=== PATIENT | female | born 1935 | race Caucasian/White ===

== ENCOUNTER 2017-12-26 19:45 | Observation (INO) | payer BC, MEDICARE ==
[2017-12-26] MEDS: ASPIRIN CHEWABLE 81 MG TABLET. PO (20:05)
[2017-12-26 20:14] LABS: ADD MAN DIFF? NO
[2017-12-26] MEDS: MORPHINE SULFATE 4 MG/ML DISP.SYRIN. IV ×2 (20:15→20:26)
[2017-12-26 20:16] LABS: BASO # 0.1 x10^3/uL (0.0-0.2); BASO % 1 % (0-3); EOS # 0.1 x10^3/uL (0.0-0.7); EOS % 1 % (0-3); HEMATOCRIT 41.8 % (36.0-47.0); HEMOGLOBIN 14.4 g/dL (12.0-15.5); LYMPH # 2.3 x10^3/uL (1.0-4.8); LYMPH % 37 % (24-48); MEAN CORPUSCULAR HEMOGLOBIN 34 pg (25-35); MEAN CORPUSCULAR HGB CONC 35 g/dL (31-37); MEAN CORPUSCULAR VOLUME 97 fL (79-100); MONO # 0.5 x10^3/uL (0.0-1.1); MONO % 8 % (0-9); NEUT # 3.3 x10^3uL (1.8-7.7); NEUT % 53 % (31-73); PLATELET COUNT 226 x10^3/uL (140-400); RED BLOOD COUNT 4.29 x10^6/uL (3.50-5.40); RED CELL DISTRIBUTION WIDTH 13.3 % (11.5-14.5); WHITE BLOOD COUNT 6.2 x10^3/uL (4.0-11.0)
[2017-12-26 20:36] LABS: ANION GAP 5 (6-14); BLOOD UREA NITROGEN 23 mg/dL (7-20); CALCIUM 9.6 mg/dL (8.5-10.1); CARBON DIOXIDE 29 mmol/L (21-32); CHLORIDE 105 mmol/L (98-107); CREATININE 1.1 mg/dL (0.6-1.0); GFR 47.4; GLUCOSE 122 mg/dL (70-99); POTASSIUM 3.8 mmol/L (3.5-5.1); SODIUM 139 mmol/L (136-145)
[2017-12-26] MEDS: fentaNYL PF VIAL 100 MCG/2 ML VIAL IV (20:36)
[2017-12-26 20:43] LABS: TROPONINI < 0.017 ng/mL (0.000-0.055)
[2017-12-26 20:45] LABS: NT-PRO BNP 215 pg/mL (0-449)
[2017-12-26] MEDS ORDERED: ACETAMINOPHEN 325 MG TABLET. PO (22:45)
[2017-12-26] MEDS ORDERED: ONDANSETRON PF 4 MG/2 ML VIAL. IV (22:45)
[2017-12-26] MEDS: IV NORMAL SALINE 500ML BAG 500 ML IV (23:09)
[2017-12-26] MEDS ORDERED: CONTRAST GIVEN. MC (23:15)
[2017-12-26] MEDS: IOHEXOL 300 MG/ML 100ML VIAL. IV (23:33)
[2017-12-27] MEDS: fentaNYL PF VIAL 100 MCG/2 ML VIAL IV ×3 (00:23→10:35)
[2017-12-27 02:14] LABS: TROPONINI < 0.017 ng/mL (0.000-0.055)
[2017-12-27 05:24] LABS: ANION GAP 6 (6-14); BLOOD UREA NITROGEN 20 mg/dL (7-20); CALCIUM 9.1 mg/dL (8.5-10.1); CARBON DIOXIDE 28 mmol/L (21-32); CHLORIDE 105 mmol/L (98-107); GLUCOSE 99 mg/dL (70-99); POTASSIUM 4.1 mmol/L (3.5-5.1); SODIUM 139 mmol/L (136-145)
[2017-12-27 05:35] LABS: TROPONINI < 0.017 ng/mL (0.000-0.055)
[2017-12-27 08:38] LABS: CHOLESTEROL 214 mg/dL (0-200); CHOLESTEROL/HDL RATIO 3.6; HDLC 59 mg/dL (40-60); LDLC 135 mg/dL (0-100); NON-HDL CHOLESTEROL 155 mg/dL (0-129); TRIGLYCERIDES 101 mg/dL (0-150); VLDLC 20 mg/dL (0-40)
[2017-12-27 08:48] LABS: THYROID STIM HORMONE (TSH) 1.784 uIU/mL (0.358-3.74)
[2017-12-27] MEDS: REGADENOSON 0.4 MG/5 ML DISP.SYRIN. IV (10:45)
[2017-12-27] MEDS ORDERED: REGADENOSON 0.4 MG/5 ML DISP.SYRIN. IV (11:00)
[2017-12-27] MEDS ORDERED: hydrALAZINE 20 MG/ML VIAL. IVP (11:30)
[2017-12-27] MEDS ORDERED: ACETAMINOPHEN 325 MG TABLET. PO (11:30)
[2017-12-27] MEDS ORDERED: DOCUSATE SODIUM 100 MG CAPSULE. PO (11:30)
[2017-12-27] MEDS ORDERED: ONDANSETRON PF 4 MG/2 ML VIAL. IV (11:30)
[2017-12-27] MEDS ORDERED: ALBUTEROL SULFATE 2.5 MG/3 ML NEBU. NEB (13:45)
[2017-12-27] MEDS: HYDROcodone/APAP 5/325MG 1 TAB TABLET PO ×2 (15:23→21:17)
[2017-12-27] MEDS: amLODIPine BESYLATE 5 MG TABLET PO (15:23)
[2017-12-27] MEDS: ASPIRIN ENTERIC COATED 81 MG TABLET.DR. PO (15:23)
[2017-12-27] MEDS: ATORVASTATIN CALCIUM 20 MG TABLET PO (21:16)
[2017-12-27] MEDS: ENOXAPARIN 40 MG/0.4 ML SYRINGE. SQ (21:17)
[2017-12-28 05:02] LABS: ADD MAN DIFF? NO
[2017-12-28 05:15] LABS: BASO % 1 % (0-3); EOS # 0.1 x10^3/uL (0.0-0.7); EOS % 2 % (0-3); HEMATOCRIT 39.5 % (36.0-47.0); HEMOGLOBIN 13.3 g/dL (12.0-15.5); LYMPH # 2.4 x10^3/uL (1.0-4.8); LYMPH % 47 % (24-48); MEAN CORPUSCULAR HEMOGLOBIN 33 pg (25-35); MEAN CORPUSCULAR HGB CONC 34 g/dL (31-37); MEAN CORPUSCULAR VOLUME 98 fL (79-100); MONO # 0.4 x10^3/uL (0.0-1.1); MONO % 7 % (0-9); NEUT # 2.1 x10^3uL (1.8-7.7); NEUT % 42 % (31-73); PLATELET COUNT 206 x10^3/uL (140-400); RED BLOOD COUNT 4.05 x10^6/uL (3.50-5.40); RED CELL DISTRIBUTION WIDTH 13.3 % (11.5-14.5)
[2017-12-28 05:41] LABS: ANION GAP 6 (6-14); BLOOD UREA NITROGEN 19 mg/dL (7-20); CALCIUM 8.6 mg/dL (8.5-10.1); CARBON DIOXIDE 28 mmol/L (21-32); CHLORIDE 106 mmol/L (98-107); CREATININE 1.1 mg/dL (0.6-1.0); GFR 47.4; GLUCOSE 123 mg/dL (70-99); POTASSIUM 4.1 mmol/L (3.5-5.1); SODIUM 140 mmol/L (136-145)
[2017-12-28] MEDS: ASPIRIN ENTERIC COATED 81 MG TABLET.DR. PO (08:43)
[2017-12-28] MEDS: amLODIPine BESYLATE 5 MG TABLET PO (08:43)
[2017-12-28] MEDS ORDERED: traZODone 100 MG TABLET. PO (21:00)
== END 2017-12-28 15:45 | disposition home or self-care (01) ==
LOC: ER 19:45 → 2 SOUTH 22:30
DX: R07.89 Other chest pain (principal); I13.0 Hypertensive heart and chronic kidney disease with heart failure and stage 1 through stage 4 chronic kidney disease, or unspecified chronic kidney disease; I50.9 Heart failure, unspecified; N18.9 Chronic kidney disease, unspecified; E78.5 Hyperlipidemia, unspecified; E78.00 Pure hypercholesterolemia, unspecified; F17.210 Nicotine dependence, cigarettes, uncomplicated; K21.9 Gastro-esophageal reflux disease without esophagitis; J44.9 Chronic obstructive pulmonary disease, unspecified; M19.90 Unspecified osteoarthritis, unspecified site; M54.5 Low back pain; Z86.010 Personal history of colon polyps; Z90.49 Acquired absence of other specified parts of digestive tract
CPT/HCPCS: 36415; 71045; 71100; 71275; 78452; 80048; 80061; 83880; 84443; 84484; 85025; 93005; 93017; 96361; 96372; 96374; 96375; 96376; 97161-GP; 99285; A9500; G0378; G0379; J1650; J2270; J2785; J3010; J7040; Q9967

== ENCOUNTER → 2018-07-31 | Outpatient (CLI) | payer BC ==
[2017-12-28 15:00] VITALS: BP 139/71
[~2018-07-31] MED LIST: ALPR0.254 PO; AMLO10TA8 PO; ASPI-612 PO; ATOR20TA58 PO; CITA20TA6 PO; DOXA4TAB3 PO; HYDR-2765 PO; PANT40TA5 PO; TRAZ-86 PO
--- NOTE | 2018-07-31 14:55 | CARD ---
MR#: [id number] Date of Study: 07/31/2018 Ordering Physician: JANNA BIGGS, Referring Physician: JANNA BIGGS Tech: Brooklyn Unger SUNIL APPROVED REPORT EXAM: Two-dimensional and M-mode echocardiogram with Doppler and color Doppler. Other Information Quality : AverageHR: 85bpm Rhythm : NSR INDICATION Chest Pain 2D DIMENSIONS RVDd2.9 (2.9-3.5cm)Left Atrium(2D)3.6 (1.6-4.0cm) IVSd1.2 (0.7-1.1cm)Aortic Root(2D)2.9 (2.0-3.7cm) LVDd3.4 (3.9-5.9cm)LVOT Diameter1.7 (1.8-2.4cm) PWd1.1 (0.7-1.1cm)LVDs2.2 (2.5-4.0cm) FS (%) 35.9 %SV30.9 ml LVEF(%)66.6 (>50%) M-Mode DIMENSIONS Left Atrium(MM)3.80 (2.5-4.0cm)Aortic Root2.76 (2.2-3.7cm) Aortic Valve AoV Peak Francois.140.6cm/sAoV VTI25.8cm AO Peak GR.7.9mmHgLVOT Peak Francois.100.0cm/s AO Mean GR.4mmHgAVA (VMAX)1.52cm2 BUSTER (VTI)1.60cm2 Mitral Valve MV E Mqqrcrqa93.1cm/sMV DECEL [id number] MV A Zkgrbbfh795.1cm/sE/A Ratio0.8 MV A [id number] Pulmonary Valve PV Peak Ybudgyqz49.1cm/s LEFT VENTRICLE The left ventricle cavity is small. There is borderline to mild concentric left ventricular hypertrop hy. The left ventricular systolic function is normal. The Ejection Fraction is 65-70%. There is chela l LV segmental wall motion. Transmitral Doppler flow pattern is Grade I-abnormal relaxation pattern. RIGHT VENTRICLE The right ventricle is normal size. There is normal right ventricular wall thickness. The right ventr icular systolic function is normal. ATRIA The left atrium size is normal. The right atrium size is normal. The interatrial septum is intact wit h no evidence for an atrial septal defect or patent foramen ovale as noted on 2-D or Doppler imaging. AORTIC VALVE The aortic valve is normal in structure and function. The aortic valve is trileaflet. Doppler and Col or Flow revealed no significant aortic regurgitation. There is no significant aortic valvular stenosi s. MITRAL VALVE The mitral valve is normal in structure and function. There is no evidence of mitral valve prolapse. There is no mitral valve stenosis. Doppler and Color-flow revealed trace mitral regurgitation. TRICUSPID VALVE The tricuspid valve is normal in structure and function. Doppler and Color Flow revealed no tricuspid valve regurgitation noted. There is no tricuspid valve prolapse or vegetation. There is no tricuspid valve stenosis. PULMONIC VALVE Pulmonic valve not well visualized. GREAT VESSELS The aortic root is normal in size. The ascending aorta is normal in size. The IVC is normal in size a nd collapses >50% with inspiration. PERICARDIAL EFFUSION There is no evidence of significant pericardial effusion. Critical Notification Critical Value: No <Conclusion> The left ventricular systolic function is normal. The Ejection Fraction is 65-70%. There is normal LV segmental wall motion. Transmitral Doppler flow pattern is Grade I-abnormal relaxation pattern. Doppler and Color-flow revealed trace mitral regurgitation. There is no evidence of significant pericardial effusion. Signed by : Janna Biggs, Electronically Approved : 07/31/2018 14:53:16
== END | disposition home or self-care (01) ==
LOC: ECHO 13:54
PROVIDERS: ATTEND Internal Medicine Cardiovascular Disease
DX: I51.7 Cardiomegaly (principal); R00.8 Other abnormalities of heart beat
CPT/HCPCS: 93306

== ENCOUNTER → 2020-07-17 | Outpatient (CLI) | payer BC ==
[2017-12-28 15:00] VITALS: BP 139/71
[~2020-07-17] MED LIST changes: +AMLO-187 PO; -AMLO10TA8 PO; -ASPI-612 PO; +ASPI-886 PO; -PANT40TA5 PO; +PANT40TA77 PO; +TRAZ-123 PO; -TRAZ-86 PO
[2020-07-17 12:45] LABS: ALBUMIN 3.8 g/dL (3.4-5.0); CALCIUM 9.3 mg/dL (8.5-10.1); CREATININE 0.9 mg/dL (0.6-1.0); GFR 59.5; PHOSPHORUS 3.2 mg/dL (2.6-4.7); POTASSIUM 4.5 mmol/L (3.5-5.1)
== END ==
LOC: LAB 11:21
PROVIDERS: ATTEND Internal Medicine Nephrology
DX: I12.9 Hypertensive chronic kidney disease with stage 1 through stage 4 chronic kidney disease, or unspecified chronic kidney disease (principal); N18.31 Chronic kidney disease, stage 3a; Z68.26 Body mass index [BMI] 26.0-26.9, adult
CPT/HCPCS: 36415; 80069

== ENCOUNTER → 2021-01-08 | Outpatient (CLI) | payer BC ==
[2017-12-28 15:00] VITALS: BP 139/71
--- NOTE | 2021-01-08 16:34 | KCIC ---
EXAMINATION: XR SHOULDER_RIGHT 2+ VIEWS CLINICAL HISTORY: TINGLING OF RIGHT UPPER EXTREMITY FOR A FEW MONTHS, NO KNOWN INJURY TECHNIQUE: XR SHOULDER_RIGHT 2+ VIEWS Number of Images/Views: 3 COMPARISON: None FINDINGS: Glenohumeral joint space narrowing with small inferior marginal osteophytes. Mild hypertrophic acromi oclavicular degenerative changes. Remote healed fracture deformity in the proximal humerus. No acute fracture. Acromiohumeral interval maintained. IMPRESSION: Glenohumeral and acromioclavicular degenerative changes as described. Remote healed fracture deformity in the proximal humerus. Electronically signed by: Reinier Griggs DO (01/08/2021 4:32 PM) [id number]
--- NOTE | 2021-01-08 16:36 | KCIC ---
EXAMINATION: XR CERVICAL SPINE 2-3V CLINICAL HISTORY: TINGLING OF RIGHT UPPER EXTREMITY FOR A FEW MONTHS, NO KNOWN INJURY TECHNIQUE: XR CERVICAL SPINE 2-3V Number of Images/Views: 3 COMPARISON: None FINDINGS: Normal anatomic alignment. No evidence of acute fracture or spondylolisthesis. Mild to moderate multi level degenerative disc disease with prominent anterior endplate osteophytes in the mid to lower cerv ical spine. Mild to moderate multilevel facet arthropathy. No prevertebral soft tissue swelling. IMPRESSION: No acute osseous abnormality. Multilevel degenerative findings as described. Electronically signed by: Reinier Griggs DO (01/08/2021 4:34 PM) [id number]
== END ==
LOC: KCIC 10:32
PROVIDERS: ATTEND Family Medicine
DX: M47.812 Spondylosis without myelopathy or radiculopathy, cervical region (principal); M19.011 Primary osteoarthritis, right shoulder; M50.30 Other cervical disc degeneration, unspecified cervical region; M25.711 Osteophyte, right shoulder; M25.78 Osteophyte, vertebrae; R20.2 Paresthesia of skin
CPT/HCPCS: 72040; 73030

== ENCOUNTER → 2021-02-24 | Outpatient (CLI) | payer BC ==
[2017-12-28 15:00] VITALS: BP 139/71
[2021-02-24 14:03] LABS: ALBUMIN 3.9 g/dL (3.4-5.0); CALCIUM 9.5 mg/dL (8.5-10.1); CREATININE 1.3 mg/dL (0.6-1.0); GFR 38.8; PHOSPHORUS 3.7 mg/dL (2.6-4.7); POTASSIUM 4.9 mmol/L (3.5-5.1)
== END ==
LOC: LAB 13:15
PROVIDERS: ATTEND Internal Medicine Nephrology
DX: I12.9 Hypertensive chronic kidney disease with stage 1 through stage 4 chronic kidney disease, or unspecified chronic kidney disease (principal); N18.31 Chronic kidney disease, stage 3a; N13.9 Obstructive and reflux uropathy, unspecified; Z68.26 Body mass index [BMI] 26.0-26.9, adult
CPT/HCPCS: 36415; 80069

== ENCOUNTER → 2021-04-08 | Outpatient (CLI) | payer BC ==
[2017-12-28 15:00] VITALS: BP 139/71
[2021-04-08 14:46] LABS: CREATININE 0.9 mg/dL (0.6-1.0); GFR 59.4; POTASSIUM 4.5 mmol/L (3.5-5.1)
== END ==
LOC: LAB 14:03
PROVIDERS: ATTEND Internal Medicine Nephrology
DX: I12.9 Hypertensive chronic kidney disease with stage 1 through stage 4 chronic kidney disease, or unspecified chronic kidney disease (principal); N18.31 Chronic kidney disease, stage 3a; N13.9 Obstructive and reflux uropathy, unspecified; N17.9 Acute kidney failure, unspecified; Z68.26 Body mass index [BMI] 26.0-26.9, adult
CPT/HCPCS: 36415; 80048